=== PATIENT | male | born 1995 | race Caucasian/White ===

== ENCOUNTER 2017-06-08 08:31 | Emergency (ER) | payer BC ==
[~2017-06-08] VITALS: Ht 177.8 cm; Wt 83.1 kg
[2017-06-08 08:35] VITALS: TEMP 36.7; Ht 177.8 cm; Wt 83.1 kg
--- NOTE | 2017-06-08 09:29 | EMERGENCY ROOM VISIT NOTE ---
History Report prepared by Kishan: Sol Yang Under the Supervision of: Dr. Bettie Han M.D. First contact with patient: 09:01 Chief Complaint: HEAD INJURY (MINOR) Stated Complaint: HEAD INJURY, NAUSEA History of Present Illness The patient is a 21 year old male who presents to the Emergency Room with complaints of a sudden head injury that occurred 2 days ago. The patient states that he was drinking alcohol 2 days ago and experienced a fall while intoxicated. He states that he fell and hit the right side of his head on the ground. He thinks that he hit his head on grass and not on concrete. No one witnessed the fall but the patient does not think that he experienced LOC afterward. The patient states that he experienced nausea and vomiting yesterday but he does not know if it is secondary to the head injury or to drinking alcohol. The patient states that he is still experiencing nausea, but he has not vomited since yesterday. The patient also experienced dizziness when he closed his eye last night. He denies any headaches and states that his symptoms do not feel like they are getting worse. He also denies visual changes, difficulty speaking, neck pain, and any one-sided weakness. Source of History: patient Onset: 2 days ago Position: head Quality: other (head injury) Timing: other (sudden) Associated Symptoms: + nausea, + vomiting, No LOC, No headache, No neck pain , No weakness (one-sided) Note: dizziness when closing eyes, no visual changes, no difficulty speaking Review of Systems See HPI for pertinent positives & negatives. A total of 10 systems reviewed and were otherwise negative. Past Medical & Surgical Medical Problems: (1) Pyloric stenosis Family History No significant family history Social History Smoking Status: Never Smoker Alcohol Use: occasionally Housing Status: lives alone Occupation Status: employed Current/Historical Medications No Active Prescriptions or Reported Meds Allergies Coded Allergies: No Known Allergies (Unverified , 06/08/17) Physical Exam Vital Signs Date Time Temp Pulse Resp B/P (MAP) Pulse Ox O2 Delivery O2 Flow Rate FiO2 06/08/17 09:46 81 18 131/71 97 06/08/17 08:35 36.7 80 18 132/72 97 Room Air Physical Exam Vital signs reviewed. General: Well-appearing male, in no significant distress. HEENT: No scleral icterus, PERRLA, neck supple. Atraumatic. Cardiovascular: Regular rate and rhythm, no extra sounds. Pulmonary: Clear to auscultation bilaterally, normal work of breathing. Abdomen: Soft, nontender, nondistended, positive bowel sounds. Musculoskeletal: Atraumatic, no peripheral edema. Neurologic: Patient awake alert and oriented x 3, full strength in all 4 extremities. Cranial nerves 2 through 12 grossly intact. GCS: 15 Skin: Warm, dry, no rash Medical Decision & Procedures ED Course 0907: Past medical records reviewed. The patient was evaluated in room A2. A complete history and physical examination was performed. 0911: After examination, I discussed findings with him. I also offered to have a follow-up appointment setup for him. He verbalized agreement of the treatment plan. He was discharged home. 0913: I discussed the patient's case with the manager of internal. They are going to try to setup an appointment for the patient at the [facility] [place]. 0934: The manager of internal has scheduled an appointment for the patient. Medical Decision Head injury: Intracranial hemorrhage, postconcussive syndrome, skull fracture, intracranial mass, migraine headache, tension headache, sinusitis, meningitis. Medication Reconciliation: I attest that I have personally reviewed the patient' s current medication list. Blood Pressure Screening: Patient was found to have a slightly elevated blood pressure due to circumstances. I do not believe that the patient requires hypertension monitoring. This patient was evaluated and appeared to be in no significant distress. Physical examination is fairly unrevealing. Patient has no alteration mental status, no active vomiting and mild to nonexistent headache at this time. The patient's head injury happened 48 hours ago. His symptoms seems to be improving. I do not feel he needs a CT scan at this time. An appointment was made with [facility] family medicine for tomorrow for reevaluation. The patient was given head injury instructions. The patient will return to the ER immediately for worsening of symptoms or any medical concerns. He has expressed an understanding and agrees. Impression Primary Impression: Closed head injury Scribe Attestation The scribe's documentation has been prepared under my direction and personally reviewed by me in its entirety. I confirm that the note above accurately reflects all work, treatment, procedures, and medical decision making performed by me. Departure Information Dispostion Home / Self-Care Prescriptions No Active Prescriptions or Reported Meds Referrals No Doctor, Assigned (PCP) Forms HOME CARE DOCUMENTATION FORM, IMPORTANT VISIT INFORMATION Patient Instructions ED Head Injury Closed, My [facility] Additional Instructions Diagnosis: Closed head injury Tylenol 650 mg every 6 hours as needed for pain. Drink plenty of fluids. Follow up with Dr Frankel as scheduled tomorrow for reevaluation. Return to the ED for worsening of symptoms or any medical concerns. Problem Qualifiers Primary Impression: Closed head injury Encounter type: initial encounter Qualified Codes: S09.90XA - Unspecified injury of head, initial encounter
[2017-06-08 09:46] VITALS: BP 131/71; PULSE 81; O2SAT 97
== END 2017-06-08 09:46 | disposition home or self-care (01) ==
LOC: C.EDB 08:32 → C.EDA 09:46
DX: S09.90XA Unspecified injury of head, initial encounter (principal); W19.XXXA Unspecified fall, initial encounter; K31.1 Adult hypertrophic pyloric stenosis